=== PATIENT | female | born 1990 | race Caucasian/White ===

== ENCOUNTER 2016-07-16 13:50 | Inpatient (IN) | payer OTHER ==
[2016-07-16] MEDS ORDERED: DEXTROSE 5%-LACTATED RINGERS 500 ML IV ONE ×2 (14:30→15:30)
[2016-07-16] MEDS ORDERED: DEXTROSE 5%-LACTATED RINGERS 1,000 ML IV SCH (17:30)
[2016-07-16 18:17] VITALS: BMI 28.5
[2016-07-16 18:28] LABS: EOSINOPHIL 3.2 % (0-4.5); MCHC 34.4 g/dl (32.0-36.0); MEAN CELL VOLUME 90.2 fl (80-96); MEAN PLT VOLUME 10.4 fl (7.5-11.1); NEUTROPHILS 63.3 % (42.8-82.8); PLATELET COUNT 155 K/MM3 (134-434); RDW 14.4 % (11.6-15.6); WHITE BLOOD COUNT 11.8 K/mm3 (4.0-10.0)
[2016-07-16] MEDS ORDERED: BUTORPHANOL TARTRATE 1 MG/ML VIAL IVPB ONE (18:30)
[2016-07-16 18:40] LABS: INR 0.91 (0.82-1.09)
[2016-07-16 18:43] LABS: ACTIVATED PTT 29.3 SECONDS (26.9-34.4)
[2016-07-16 19:01] LABS: CALCIUM 8.7 mg/dL (8.5-10.1); CREATININE 0.6 mg/dL (0.55-1.02)
[2016-07-16] MEDS: OXYTOCIN 20 UNITS in 0.9% NS 1,000 ML IV SCH (19:10)
[2016-07-16 19:39] LABS: PLATELET ESTIMATE ADEQUATE (NORMAL)
--- NOTE | 2016-07-16 20:12 | HP ---
Admitting History and Physical - Admission Chief Complaint: ;labor pains History of Present Illness: 26 y/o comes with complaints of labor pains. She is a pt of [facility], hiv neg, gbs neg, rpr neg. 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: Alzheimer's, CVA, Dementia, Migraine, Multiple Sclerosis, Peripheral Neuropathy, Parkinson's, Seizure, Syncope, TIA, Vertigo, Other Cardiovascular: No: AFIB, Aneurysm, Aortic Insufficiency, Aortic Stenosis, CAD, CHF, Deep Vein Thrombosis, HTN, Hyperlipdemia, NE, Mitral Insufficiency, Mitral Stenosis, Murmur, Pulmonary Hypertension, Other Pulmonary: No: Asthma, Bronchitis, Cancer, COPD, O2 Dependent, Pneumonia, Previously Intubated, Pulmonary Embolus, Pulmonary Fibrosis, Sleep Apnea, Other Gastrointestinal: No: Ascites, Cancer, Constipation, Crohn's Disease, Diverticulitis, Diverticulosis, Esophageal Varices, Gastritis, GERD, GI Bleed, Hemorrhoids, Hiatal Hernia, Inflamatory Bowel Disease, Irritable Bowel Disease, Pancreatitis, Peptic Ulcer Disease, Ulcerative Colitis, Other Hepatobiliary: No: Cirrhosis, Cholelithiasis, Cholecystitis, Choledocholithiasis , Hepatitis A, Hepatitis B, Hepatitis C, Other Renal/: No: Renal Failure, Renal Inusuff, BPH, Cancer, Hematuria, Hemodialysis , Neurogenic Bladder, Renal Calculi, UTI, Other ...: 2 ...Para: 1 Heme/Onc: No: Anemia, B12 Deficiency, Bleeding Disorder, Cancer, Current Chemotherapy, Current Radiation Therapy, Hemochromatosis, Hypercoaguable State, Myeloproliferative Synd, Sickle Cell Disease, Sickle Cell Trait, Thrombocytopenia, Other Infectious Disease: No: AIDS, C-Diff, Herpes Zoster, HIV, MRSA, STD's, Tuberculosis, VREF, Other Psych: No: Addictions, Anxiety, Bipolar, Depression, Panic, Psychosis, Schizophrenia, Other Musculoskeletal: No: Bursitis, Chronic low back pain, Hemiparesis, Hemiplegia, Osteoarthritis, Paraplegia, Other Rheumatology: No: Fibromyalgia, Gout, Lupus, Rheumatoid Arthritis, Sarcoidosis, Vasculitis, Other ENT: No: Allergic Rhinitis, Sinusitis, Other Endocrine: No: Chantilly's Disease, Jocelyn's Disease, Diabetes Insipidus, Diabetes Mellitus, Hyperparathyroidism, Hyperthyroidism, Hypothyroidism, Osteopenia, SIADH, Other Dermatology: No: Basal Cell, Cellulitis, Eczema, Melanoma, Psoriasis, Squamous Cell, Other - Past Surgical History Past Surgical History: No: None, AAA Repair, AICD, Amputation, Appendectomy, Arthrosocopy, AV Fistula/Graft, Bariatric Surgery, Breast Biopsy, Bypass, CABG, Carotid Endarterectomy, Cataract Removal, Cholecystectomy, Colectomy, Colonoscopy, Colostomy, Craniotomy, , Cystectomy, Hernia Repair, Hysterectomy, Ileal Conduit, Ileosotomy, Joint Replacement, Kidney Transplant, Laminectomy, Liver Transplant, Mastectomy, Nephrectomy, Oopherectomy, Orchiectomy, Permanent Pacemaker, Prostatectomy, Splenectomy, Stent, Thoracotomy , TURP, Tonsillectomy, Tubal Ligation, Upper Endoscopy, Valve Replacement, Vasectomy, Vein Stripping/Ligation - Smoking History Smoking history: Never smoked Have you smoked in the past 12 months: No - Alcohol/Substance Use Hx Alcohol Use: No Home Medications - Allergies Allergies/Adverse Reactions: Allergies Allergy/AdvReac Type Severity Reaction Status Date / Time No Known Allergies Allergy Verified 07/16/16 14:32 - Home Medications Home Medications: Ambulatory Orders Ferrous Gluconate [Iron] 256 mg PO DAILY 07/08/16 Vit No.130/Iron/FA [ Vitamins] 1 each PO DAILY 07/08/16 Review of Systems - Review of Systems Constitutional: reports: No Symptoms Eyes: reports: No Symptoms HENT: reports: No Symptoms Neck: reports: No Symptoms Cardiovascular: reports: No Symptoms Respiratory: reports: No Symptoms Gastrointestinal: reports: No Symptoms Genitourinary: reports: No Symptoms Breasts: reports: No Symptoms Reported Musculoskeletal: reports: No Symptoms Integumentary: reports: No Symptoms Endocrine: reports: No Symptoms Hematology/Lymphatic: reports: No Symptoms Psychiatric: reports: No Symptoms Physical Examination Vital Signs: Vital Signs Temperature 98.7 F 07/16/16 18:10 Pulse Rate 97 H 07/16/16 18:10 Respiratory Rate 20 07/16/16 18:10 Blood Pressure 124/73 07/16/16 18:10 O2 Sat by Pulse Oximetry (%) Constitutional: Yes: Well Nourished Eyes: Yes: WNL HENT: Yes: WNL Neck: Yes: WNL Cardiovascular: Yes: WNL Respiratory: Yes: WNL Gastrointestinal: Yes: WNL ...Rectal Exam: Yes: WNL Renal/: Yes: WNL Breast(s): Yes: WNL Musculoskeletal: Yes: WNL Extremities: Yes: WNL Integumentary: Yes: WNL Neurological: Yes: WNL ...Motor Strength: WNL Psychiatric: Yes: WNL Labs: CBC, BMP 07/16/16 18:20 07/16/16 18:20 Assessment/Plan as above admit labs
[2016-07-16] MEDS ORDERED: BENZOCAINE 28 GM HEMORRHOIDAL OINTMENT TP PRN (20:14)
[2016-07-16] MEDS ORDERED: METHYLERGONOVINE MALEATE 0.2 MG/1 ML AMP IM PRN (20:14)
[2016-07-16] MEDS ORDERED: BISACODYL 10 MG SUPP.RECT RC PRN (20:14)
[2016-07-16] MEDS ORDERED: BENZOCAINE 20% 57 GM BOTTLE TP PRN (20:14)
[2016-07-16] MEDS ORDERED: WITCH HAZEL 50% (TUCKS) 40 PAD/JAR PAD TP PRN (20:14)
[2016-07-16] MEDS ORDERED: ELECTROLYTE-148 SOLN 1,000 ML IV SCH (20:15)
[2016-07-16] MEDS: IBUPROFEN 600 MG TABLET (FP) PO PRN (21:33)
[2016-07-16] MEDS: ACETAMINOPHEN 325 MG TABLET (FP) PO PRN (21:34)
[2016-07-17] MEDS: OXYTOCIN 20 UNITS in 0.9% NS 1,000 ML IV SCH (00:34)
--- NOTE | 2016-07-17 01:55 | PN ---
Post Progress Note Post Day: 1 Type of Delivery: Vital Signs: Vital Signs Temperature 98.6 F 07/16/16 22:00 Pulse Rate 76 07/16/16 22:00 Respiratory Rate 18 07/16/16 22:00 Blood Pressure 129/78 07/16/16 22:00 O2 Sat by Pulse Oximetry (%) 100 07/16/16 19:45 Breast Exam: Yes: Soft Uterus: Yes: Fundus Firm Abdomen/GI: Yes: Abdomen soft Lochia: Yes: Rubra Lochia, amount: Small Extremities: Yes: Calves non-tender Perineum: Yes: Intact Activity: Ambulating - Labs Labs: CBC WBC 11.8 K/mm3 (4.0-10.0) H 07/16/16 18:20 RBC 4.60 M/mm3 (3.60-5.2) 07/16/16 18:20 Hgb 14.3 GM/dL (10.7-15.3) 07/16/16 18:20 Hct 41.5 % (32.4-45.2) 07/16/16 18:20 MCV 90.2 fl (80-96) 07/16/16 18:20 MCHC 34.4 g/dl (32.0-36.0) 07/16/16 18:20 RDW 14.4 % (11.6-15.6) 07/16/16 18:20 Plt Count 155 K/MM3 (134-434) D 07/16/16 18:20 MPV 10.4 fl (7.5-11.1) 07/16/16 18:20 Neutrophils % 63.3 % (42.8-82.8) 07/16/16 18:20 Lymphocytes % 25.0 % (8-40) 07/16/16 18:20 Monocytes % 7.5 % (3.8-10.2) 07/16/16 18:20 Eosinophils % 3.2 % (0-4.5) 07/16/16 18:20 Basophils % 1.0 % (0-2.0) 07/16/16 18:20 Differential Comment Slide scanned 07/16/16 18:20 Platelet Estimate Adequate (NORMAL) 07/16/16 18:20 Platelet Comment Few giant plts 07/16/16 18:20 RBC Morphology Appears normal 07/16/16 18:20 Assessment/Plan as above check labs check vitals reg diet
[2016-07-17 06:06] LABS: BASOPHIL 0.3 % (0-2.0); EOSINOPHIL 1.3 % (0-4.5); MCH 31.3 pg (25.7-33.7); MCHC 34.1 g/dl (32.0-36.0); MEAN CELL VOLUME 91.7 fl (80-96); MEAN PLT VOLUME 10.5 fl (7.5-11.1); NEUTROPHILS 71.3 % (42.8-82.8); PLATELET COUNT 147 K/MM3 (134-434); RDW 13.8 % (11.6-15.6); WHITE BLOOD COUNT 11.5 K/mm3 (4.0-10.0)
[2016-07-17] MEDS ORDERED: SENNOSIDES/DOCUSATE COMBO (SENNA PLUS) TABLET (UD) PO PRN (22:00)
[2016-07-18] MEDS: ACETAMINOPHEN 325 MG TABLET (FP) PO PRN ×2 (04:00→12:20)
[2016-07-18 07:46] VITALS: BP 104/57; PULSE 71; TEMP 97.8
--- NOTE | 2016-07-18 08:25 | PN ---
Post Progress Note Post Day: 2 Type of Delivery: Vital Signs: Vital Signs Temperature 97.8 F 07/18/16 07:45 Pulse Rate 71 07/18/16 07:45 Respiratory Rate 20 07/18/16 07:45 Blood Pressure 104/57 07/18/16 07:45 O2 Sat by Pulse Oximetry (%) 100 07/16/16 19:45 Breast Exam: Yes: Soft Uterus: Yes: Fundus Firm Abdomen/GI: Yes: Abdomen soft Lochia: Yes: Rubra Lochia, amount: Small Extremities: Yes: Calves non-tender Perineum: Yes: Intact - Labs Labs: CBC WBC 11.5 K/mm3 (4.0-10.0) H 07/17/16 05:28 RBC 3.98 M/mm3 (3.60-5.2) 07/17/16 05:28 Hgb 12.4 GM/dL (10.7-15.3) D 07/17/16 05:28 Hct 36.5 % (32.4-45.2) 07/17/16 05:28 MCV 91.7 fl (80-96) 07/17/16 05:28 MCHC 34.1 g/dl (32.0-36.0) 07/17/16 05:28 RDW 13.8 % (11.6-15.6) 07/17/16 05:28 Plt Count 147 K/MM3 (134-434) 07/17/16 05:28 MPV 10.5 fl (7.5-11.1) 07/17/16 05:28 Neutrophils % 71.3 % (42.8-82.8) 07/17/16 05:28 Lymphocytes % 20.2 % (8-40) 07/17/16 05:28 Monocytes % 6.9 % (3.8-10.2) 07/17/16 05:28 Eosinophils % 1.3 % (0-4.5) 07/17/16 05:28 Basophils % 0.3 % (0-2.0) 07/17/16 05:28 Differential Comment Slide scanned 07/16/16 18:20 Platelet Estimate Adequate (NORMAL) 07/16/16 18:20 Platelet Comment Few giant plts 07/16/16 18:20 RBC Morphology Appears normal 07/16/16 18:20 Assessment/Plan dc home today pt stable
[2016-07-18] MEDS: IBUPROFEN 600 MG TABLET (FP) PO PRN (12:21)
== END 2016-07-18 12:45 | disposition home or self-care (01) | DRG 560 ==
LOC: JDEL 13:50 → JLDR 17:35 → J3W 21:28
PROVIDERS: ADMIT Obstetrics & Gynecology; ATTEND Obstetrics & Gynecology
PROC: 10E0XZZ Delivery of Products of Conception, External Approach (ICD-10-PCS; principal; 2016-07-16)
PROC: 0HQ9XZZ Repair Perineum Skin, External Approach (ICD-10-PCS; 2016-07-16)
DX: O70.0 First degree perineal laceration during delivery (principal); Z3A.38 38 weeks gestation of pregnancy; Z37.0 Single live birth
CPT/HCPCS: 36415; 59409; 80048; 85025; 85610; 85730; 86593; 86850; 86900; 86901

== ENCOUNTER 2017-05-13 08:03 | Emergency (ER) | payer OTHER ==
[2017-05-13 08:14] VITALS: BP 124/65; PULSE 102; TEMP 98.6; BMI 24.6
[2017-05-13] MEDS ORDERED: ALBUTEROL SO4 2.5/IPRATROPIUM 0.5 INH SOL 3 ML VIAL.NEB. NEB ONE (08:42)
--- NOTE | 2017-05-13 08:46 | PDOC ---
History of Present Illness - General Chief Complaint: Respiratory Stated Complaint: SOB Time Seen by Provider: 05/13/17 08:22 History Source: Patient Exam Limitations: Language Barrier ( speaks kyrgyz translates for patient. ) - History of Present Illness Initial Comments: 05/13/17 08:39 26-year-old female, denies any significant medical history, currently on no medication no flu vaccination presents with sudden onset of chills, eye pressure , headache, moist productive cough, which suddenly started this morning. Denies any chest pain. Is having moist cough. Past Medical History: [Denies]. Allergies: No known allergies Medications: [None] Family History: Non-contributory Social History: Denies smoking, alcohol use, or IVDU Vital signs on arrival are [notable for pulse of 102.] Review of Systems GENERAL/CONSTITUTIONAL: [Tactile fever. No weakness. No weight change.] HEAD, EYES, EARS, NOSE AND THROAT: [No change in vision. No ear pain or discharge. No sore throat. ] CARDIOVASCULAR: [No chest pain or shortness of breath.] RESPIRATORY: [Moist cough, no wheezing, or hemoptysis.] GASTROINTESTINAL: [No nausea, vomiting, diarrhea or constipation. No rectal bleeding.] GENITOURINARY: [No dysuria, frequency, or change in urination.] MUSCULOSKELETAL: [No joint or muscle swelling or pain. No neck or back pain.] SKIN : [No rash or easy bruising.] NEUROLOGIC: [Frontal headache, no vertigo, loss of consciousness, or loss of sensation.] HEMATOLOGIC/LYMPHATIC: [No anemia, easy bleeding, or history of blood clots.] ALLERGIC/IMMUNOLOGIC: [No hives or skin allergy. No latex allergy.] Physical Exam: GENERAL: [The patient is awake, alert, and fully oriented, in no acute distress. ] EYES: [Pupils equal, round and reactive to light, extraocular movements intact, sclera anicteric, conjunctiva clear.] ENT: [Ears normal, nares patent, oropharynx clear without exudates. Moist mucous membranes. No uvula deviation] NECK: [Normal range of motion, supple without lymphadenopathy, JVD, or masses.] LUNGS: [Breath sounds equal, clear to auscultation bilaterally. No wheezes, and no crackles.] HEART: [Regular rate and rhythm, normal S1 and S2 without murmur, rub or gallop. ] ABDOMEN: [Soft, nontender, normoactive bowel sounds. No guarding, no rebound. No masses. No bruising or abrasions] MUSCULOSKELETAL: [Normal range of motion, no edema. No clubbing or cyanosis. No cords, erythema, or tenderness. No CVA Tenderness with fist.] NEUROLOGICAL: [Cranial nerves II through XII grossly intact. Normal speech, normal gait.] SKIN: [Warm, Dry, normal turgor, no rashes or lesions noted.] Past History - Past Medical History Allergies/Adverse Reactions: Allergies Allergy/AdvReac Type Severity Reaction Status Date / Time No Known Allergies Allergy Verified 05/13/17 08:13 Home Medications: Ambulatory Orders Ferrous Gluconate [Iron] 256 mg PO DAILY 07/08/16 Vit No.130/Iron/Folic [ Tablet] 1 each PO DAILY 07/08/16 Ibuprofen [Motrin -] 600 mg PO TID #21 tablet 07/18/16 Oseltamivir Phosphate [Tamiflu -] 75 mg PO BID #10 capsule 05/13/17 Asthma: No Cancer: No Cardiac Disorders: No COPD: No Diabetes: No HTN: No Seizures: No Thyroid Disease: No - Reproductive History (#): 1 Para: 0 Cervical CA: No Dysfunctional Uterine Bleeding: No Ectopic : No Endometrial CA: No Polycystic Ovaries: No Tubal Ligation: No Spontaneous : 0 - Suicide/Smoking/Psychosocial Hx Smoking History: Never smoked Have you smoked in the past 12 months: No Hx Alcohol Use: No Drug/Substance Use Hx: No Substance Use Type: None Hx Substance Use Treatment: No *Physical Exam - Vital Signs Last Vital Signs Temp Pulse Resp BP Pulse Ox 98.6 F 102 H 20 124/65 99 05/13/17 08:10 05/13/17 08:10 05/13/17 08:10 05/13/17 08:10 05/13/17 08:10 Medical Decision Making - Medical Decision Making 05/13/17 08:46 A/P: Patient with Sudden onset of tactile fever, moist cough and chills with frontal eye pressure. Rapid influenza sent. 05/13/17 10:00 05/13/17 11:36 Patient is influenza a positive, will DC patient on Tamiflu Motrin and Tylenol as needed for fever, increase fluid intake. I discussed the physical exam findings, ancillary test results and final diagnoses with the patient. I answered all of the patient's questions. The patient was satisfied with the care received and felt comfortable with the discharge plan and treatment plan. The patient will call to arrange follow-up and will return to the Emergency Department with any new, persistent or worsening symptoms. *DC/Admit/Observation/Transfer Diagnosis at time of Disposition: Influenza A - Discharge Dispostion Disposition: HOME Condition at time of disposition: Stable Admit: No - Prescriptions Prescriptions: Oseltamivir Phosphate [Tamiflu -] 75 mg PO BID #10 capsule - Referrals Referrals: Dano Palomino [Primary Care Provider] - - Patient Instructions Printed Discharge Instructions: Influenza (Alternative Therapy), Influenza Additional Instructions: Increase fluids to prevent dehydration Tylenol for headache Motrin for fever greater than 101.0 Please followup with primary care Dr. in 3 days if symptoms persist Return to emergency department any increased cough, fever, inability to drink or other concerns You have been diagnosed with influenza a. Please take the medication as directed. You are contagious. Please attempt to avoid contact of multiple individuals as this will cause the infection to spread. Return to emergency room if shortness of breath, wheezing, fever greater than 101, chest pain, or fainting occurs. - Post Discharge Activity Forms/Work/School Notes: Back to Work
== END 2017-05-13 09:45 | disposition home or self-care (01) ==
LOC: JER 08:03 → JERFT 08:03
DX: J09.X2 Influenza due to identified novel influenza A virus with other respiratory manifestations (principal)
CPT/HCPCS: 87804; 99281-25

== ENCOUNTER 2022-11-12 17:06 | Emergency (ER) | payer OTHER ==
[2022-11-12 17:17] VITALS: BP 115/75; PULSE 62; RESP 18; TEMP 98; BMI 24.6
[2022-11-12] MEDS ORDERED: LIDOCAINE 2.5%/PRILOCAINE 2.5% (5 Gram/TUBE) TP ONE ×2 (18:16→18:33)
== END 2022-11-12 19:53 | disposition home or self-care (01) ==
LOC: JERFT 17:06 → JER 17:06 → JERFT 19:53
DX: K64.5 Perianal venous thrombosis (principal)
CPT/HCPCS: 99284-25

== ENCOUNTER 2023-11-10 05:09 | Day surgery (SDC) | payer OTHER ==
[2023-11-08 11:19] VITALS: BMI 26.5
[2023-11-10] MEDS ORDERED: BUPIVACAINE HCL/PF 0.5% (5MG/ML) 10 ML VIAL ONE (09:00)
[2023-11-10] MEDS ORDERED: MIDAZOLAM HCL 2 MG/2 ML SINGLE DOSE VIAL ONE (09:11)
[2023-11-10] MEDS ORDERED: PROPOFOL 20 ML ONE (09:11)
[2023-11-10] MEDS ORDERED: ROCURONIUM BROMIDE 50 MG/5 ML SYRINGE ONE (09:11)
[2023-11-10] MEDS ORDERED: DEXAMETHASONE SOD PHOSPHATE 4 MG/1 ML VIAL ONE (09:11)
[2023-11-10] MEDS ORDERED: ONDANSETRON 4 MG/2 ML VIAL ONE ×2 (09:11→13:23)
[2023-11-10] MEDS ORDERED: LIDOCAINE HCL/PF 2% SDV 5ML VIAL ONE (09:11)
[2023-11-10] MEDS: BUPIVACAINE HCL/PF 0.5% (5 MG/ML) 30 ML VIAL IJ ONE ×2 (09:59)
[2023-11-10] MEDS ORDERED: SUGAMMADEX SODIUM 200 MG/2 ML VIAL ONE (10:17)
[2023-11-10] MEDS ORDERED: oxyCODONE HCL 5 MG TABLET PO PRN (10:47)
[2023-11-10] MEDS: LACTATED RINGERS SOLUTION 1,000 ML IV SCH (11:29)
[2023-11-10] MEDS: ACETAMINOPHEN 1000 MG/100 ML BAG IVPB ONE (12:05)
[2023-11-10] MEDS ORDERED: ACETAMINOPHEN INJECTION 100 ML IVPB ONE (12:05)
[2023-11-10 12:34] VITALS: RESP 16
[2023-11-10] MEDS: ONDANSETRON 4 MG/2 ML VIAL IVPUSH PRN (13:25)
[2023-11-10 15:00] VITALS: BP 100/54; PULSE 90; TEMP 97.6
== END 2023-11-10 15:52 | disposition home or self-care (01) ==
LOC: JASU-SURG 05:09
PROVIDERS: ATTEND Student in an Organized Health Care Education/Training Program
PROC: 0UT74ZZ Resection of Bilateral Fallopian Tubes, Percutaneous Endoscopic Approach (ICD-10-PCS; principal; 2023-11-10 09:00)
DX: Z30.2 Encounter for sterilization (principal)
CPT/HCPCS: 81025; 88305-TC; 94760; J0131

== ENCOUNTER 2024-01-05 04:06 | Day surgery (SDC) | payer OTHER ==
[2024-01-02 16:04] VITALS: BMI 26.5
[2024-01-05 06:27] VITALS: RESP 20
[2024-01-05] MEDS ORDERED: LIDOCAINE HCL 1%, 10 MG/ML (20ML VIAL) ONE (07:31)
[2024-01-05] MEDS ORDERED: LIDOCAINE 1%/EPI 1:100000 (20 ML MULTI DOSE VIAL) ONE (07:32)
[2024-01-05] MEDS ORDERED: PROPOFOL 40 ML ONE (07:51)
[2024-01-05] MEDS ORDERED: DEXAMETHASONE SOD PHOSPHATE 4 MG/1 ML VIAL ONE (07:51)
[2024-01-05] MEDS ORDERED: ONDANSETRON 4 MG/2 ML VIAL ONE (07:51)
[2024-01-05] MEDS ORDERED: MIDAZOLAM HCL 2 MG/2 ML SINGLE DOSE VIAL ONE (07:51)
[2024-01-05] MEDS ORDERED: LIDOCAINE HCL/PF 2% SDV 5ML VIAL ONE (07:51)
[2024-01-05] MEDS ORDERED: ONDANSETRON 4 MG/2 ML VIAL IVPUSH PRN (07:56)
[2024-01-05] MEDS ORDERED: oxyCODONE HCL 5 MG TABLET PO PRN (07:56)
[2024-01-05] MEDS ORDERED: LACTATED RINGERS SOLUTION 1,000 ML IV SCH (08:00)
[2024-01-05] MEDS: LIDOCAINE 1%/EPI 1:100000 (50 ML MULTI DOSE VIAL) INF ONE ×2 (08:29)
[2024-01-05 11:29] VITALS: BP 110/68; PULSE 82; TEMP 97
== END 2024-01-05 11:10 | disposition home or self-care (01) ==
LOC: JASU-SURG 04:06
PROVIDERS: ATTEND Surgery
PROC: 0JBF0ZZ Excision of Left Upper Arm Subcutaneous Tissue and Fascia, Open Approach (ICD-10-PCS; principal; 2024-01-05 08:00)
DX: M79.5 Residual foreign body in soft tissue (principal)
CPT/HCPCS: 81025; 88300-TC